=== PATIENT | female | born 1960 | race Caucasian/White ===

== ENCOUNTER → 2019-06-12 15:39 | Outpatient (CLI) | payer OTHER, SELFPAY ==
--- NOTE | ~2019-06-12 | MM_ITS ---
EXAMINATION: MM screening [facility] BI w clarisse HISTORY: Screening mammogram TECHNIQUE: Craniocaudal and mediolateral oblique 3-D tomosynthesis images were obtained and synthetic 2-D images were generated. CAD analysis was submitted and interpreted. COMPARISON: Comparison to multiple prior studies sequentially, with oldest reviewed study dated 01/25. BREAST PARENCHYMAL COMPOSITION: There are scattered areas of fibroglandular density. FINDINGS: Stable benign-appearing left breast calcifications. There is no evidence of suspicious mass , calcification, or architectural distortion to suggest malignancy in either breast. There has been n o suspicious interval change. IMPRESSION: 1. No mammographic evidence of malignancy. 2. Recommend routine screening mammography in one year. BI-RADS Category 2: Benign finding(s). Reviewed, dictated and finalized at location D.
== END ==
PROVIDERS: Visit Provider Internal Medicine
DX: Z12.31 Encounter for screening mammogram for malignant neoplasm of breast (principal)
CPT/HCPCS: 77063; 77067

== ENCOUNTER → 2020-06-17 16:38 | Outpatient (CLI) | payer OTHER, SELFPAY ==
--- NOTE | ~2020-06-17 | MM_ITS ---
EXAMINATION: MM screening bal[facility] BI w clarisse HISTORY: Screening mammogram, family history of breast cancer in her mother. TECHNIQUE: Craniocaudal and mediolateral oblique 3-D tomosynthesis images were obtained and synthetic 2-D images were generated. CAD analysis was submitted and interpreted. COMPARISON: 06/12/2019, 05/03/2018, 03/22/2017 BREAST PARENCHYMAL COMPOSITION: There are scattered areas of fibroglandular density. FINDINGS: There is no evidence of suspicious mass, calcification, or architectural distortion to sugg est malignancy in either breast. There has been no suspicious interval change. IMPRESSION: 1. No mammographic evidence of malignancy. 2. Recommend routine screening mammography in one year. BI-RADS Category 1: Negative Reviewed, dictated and finalized at location A.
== END ==
PROVIDERS: PCP Internal Medicine; Visit Provider Internal Medicine
DX: Z12.31 Encounter for screening mammogram for malignant neoplasm of breast (principal)
CPT/HCPCS: 77063; 77067

== ENCOUNTER 2020-08-19 12:20 | Outpatient (CLI) | payer OTHER, SELFPAY ==
--- NOTE | ~2020-08-19 | CT_ITS ---
EXAMINATION: CTA abdomen DATE: 08/19/2020 15:28 CDT INDICATION: Hypertension TECHNIQUE: Computed tomographic angiography (CTA) of the abdomen was performed without and with 100 m L Omnipaque-350 intravenous contrast. The dose-length product was 712.70 mGy-cm. Maximum intensity pr ojection 3D-reconstructions of the aorta and other arteries were constructed by the technologist on a separate workstation. Automated exposure control and iterative reconstruction technique were teshae bhanu. COMPARISON: CT dated 03/11/2011. FINDINGS: Lung bases are unremarkable. Heart size is normal. No significant pleural or pericardial ef fusion. There are calcified granulomas of the spleen. Fatty infiltration of the liver. Hepatomegaly. Gallbladder is present. The kidneys are unremarkable. No lymphadenopathy. There is a fat-containing l ower abdominal ventral wall hernias. Nonobstructive bowel gas pattern. The celiac axis, SMA and renal arteries are widely patent. The MARGARETTE is patent. No evidence for aortic aneurysm or dissection. Mild l ower thoracic and lumbar spondylosis. No acute osseous abnormality. IMPRESSION: 1. No significant vascular abnormality. 2: Hepatomegaly with fatty infiltration. 3: Small lower abdominal ventral hernia containing fat. Reviewed, dictated and finalized at location A.
[2020-08-19 13:03] LABS: Estimated Glomerular Filt Rate 31
== END 2020-08-19 12:21 | disposition home or self-care (01) ==
PROVIDERS: PCP Internal Medicine; Visit Provider Internal Medicine Nephrology
DX: R16.0 Hepatomegaly, not elsewhere classified (principal); I10 Essential (primary) hypertension; K43.9 Ventral hernia without obstruction or gangrene
CPT/HCPCS: 74175; Q9967

== ENCOUNTER → 2021-03-11 03:15 | Outpatient (CLI) | payer OTHER, SELFPAY ==
[2021-03-16 22:54] LABS: SARS-CoV-2 RNA PCR Negative
== END ==
PROVIDERS: PCP Internal Medicine; Visit Provider Nurse Practitioner
DX: Z20.828 Contact with and (suspected) exposure to other viral communicable diseases (principal)
CPT/HCPCS: C9803; U0003; U0005

== ENCOUNTER 2021-06-15 11:00 | Outpatient (RCR) | payer BC, SELFPAY ==
[2021-06-15 09:47] VITALS: BMI 44.4
[2021-06-15 09:59] VITALS: BMI 44.4
== END 2021-07-13 14:50 | disposition home or self-care (01) ==
LOC: ANHDMC 11:00
PROVIDERS: PCP Internal Medicine; Visit Provider Nurse Practitioner
DX: E11.9 Type 2 diabetes mellitus without complications (principal); Z71.3 Dietary counseling and surveillance; Z71.89 Other specified counseling
CPT/HCPCS: 97802; G0108

== ENCOUNTER 2021-07-21 14:08 | Outpatient (CLI) | payer BC, SELFPAY ==
--- NOTE | ~2021-07-21 | XR_ITS ---
XR hand RT 2V DATE: 07/21/2021 14:33 INDICATION: Pain at the base of the thumb for months TECHNIQUE: AP and lateral views COMPARISON: July 14, 2008 right wrist FINDINGS: There is mild osteoarthritis at the first carpometacarpal joint. There is mild osteoarthritis at some interphalangeal joints, primarily distal interphalangeal joint o f second digit. No fracture, dislocation, periosteal reaction or bone destruction or erosive change or chondrocalcino sis. IMPRESSION: Mild osteoarthritis primarily at first carpometacarpal and second distal interphalangeal joints Reviewed, dictated and finalized at location A. IMPRESSION: Mild osteoarthritis primarily at first carpometacarpal and second d istal interphalangeal joints
== END 2021-07-21 14:09 | disposition home or self-care (01) ==
LOC: ANHIMG 14:11
PROVIDERS: PCP Internal Medicine; Visit Provider Nurse Practitioner
DX: M19.041 Primary osteoarthritis, right hand (principal)
CPT/HCPCS: 73120

== ENCOUNTER 2021-08-12 10:19 | Emergency (ER) | payer BC, SELFPAY ==
[2021-08-12 10:26] VITALS: BP 119/81; PULSE 85; RESP 16; TEMP 36.7; O2SAT 99
--- NOTE | 2021-08-12 10:44 | ED.URI ---
HPI - URI/Sore Throat General Chief Complaint: Upper Respiratory Infection Stated Complaint: headache and sore throat Time Seen by Provider: 08/12/21 10:44 Source: patient Mode of arrival: ambulatory Limitations: no limitations History of Present Illness HPI Narrative: Peace Ruiz is a 60 yo female with a PMH ogf HTN, high cholesterol, seasonal allergies, comes to [facility] with complaints of sore throat and headache since Monday Related Data Home Medications Medication Instructions Recorded Confirmed aspirin 81 mg tablet,delayed 81 mg PO DAILY 02/25/19 08/12/21 release cetirizine 10 mg capsule 10 mg PO DAILY 02/25/19 08/12/21 chlorthalidone 25 mg tablet 25 mg PO DAILY 02/25/19 08/12/21 multivitamin 1 tablet PO DAILY 02/25/19 08/12/21 Allergies Allergy/AdvReac Type Severity Reaction Status Date / Time cephalexin Allergy Severe Hives Verified 08/12/21 10:25 Cephalosporins Allergy Unknown HIVES Verified 08/12/21 10:25 Review of Systems Review of Systems: CONSTITUTIONAL: Denies fever, chills, sweats. Has headache EYES: Denies visual changes, redness, discharge. ENT: Denies rhinorrhea, congestion, has sore throat, otalgia. CARDIOVASCULAR: Denies chest pain, palpitations, edema. RESPIRATORY: Denies dyspnea, wheezing, cough GASTROINTESTINAL: Denies abdominal pain, nausea, vomiting, diarrhea. GENITOURINARY: Denies dysuria, hematuria, abnormal discharge SKIN: Denies rash or itching. NEUROLOGIC: Denies numbness, or focal weakness. PSYCHIATRIC: Denies anxiety or depression. [facility] Past Medical History Medical History Carpal tunnel syndrome CKD (chronic kidney disease) CVA (cerebral vascular accident) History of measles, mumps, or rubella Hypertension Insomnia Obesity TIA (transient ischemic attack) Type 2 diabetes mellitus Surgical History Surgical History H/O: hysterectomy Family History Family History Mother Diabetes mellitus Hypertension Breast cancer Father Family history of coronary artery disease Social History Social History Smoking status: Never smoker Alcohol intake: never Substance use: never Spiritual care concerns: No Comments At time of signature, I agree with nursing past medical, surgical, social and family history. There is no relevant family history pertinent to the presenting complaint. Exam Narrative: GENERAL: This is a overly-nourished, well-developed patient, in moderate distress. HEAD: normocephalic, atraumatic. EYES: PERRL. Sclera clear/white. Vision is grossly intact. EARS: External ears normal, Hearing grossly intact. NOSE: External nose normal without nasal discharge, nares without redness, no rhinorrhea. THROAT: Mucous membranes moist, posterior pharynx erythema, looks raw NECK: Neck supple, non-tender CARDIOVASCULAR: Regular rate and rhythm without murmurs, gallops, or rubs. RESPIRATORY: Clear to auscultation. Breath sounds equal bilaterally. No wheezes, rales, or rhonchi. GASTROINTESTINAL: Abdomen soft, SKIN: warm, intact with no suspicious lesions or rash, good texture and turgor. NEURO: awake, alert, and oriented to person, place and time. There were no obvious focal neurologic abnormalities. Steady gait EXTREMITIES: Normal range of motion. BACK: Nontender without deformity Course Course Emergency Course: Patient comes to [facility] with complaints of sore throat and headache since Monday Strep test is negative COVID test-positive Prednisone 40 mg x 5 days, cepacol lozenges, use Tylenol as needed for pain Level of Care: Express Care Visit Vital Signs Vital signs: Vital Signs Temperature 98.0 F 08/12/21 10:26 Pulse Rate 85 08/12/21 10:26 Respiratory Rate 16 08/12/21 10:26 Blood Pressure 119/81 08/12/21 10:26 P
== END 2021-08-12 11:08 | disposition home or self-care (01) ==
PROVIDERS: Emergency Provider Nurse Practitioner; PCP Internal Medicine
DX: U07.1 COVID-19 (principal); E78.00 Pure hypercholesterolemia, unspecified; I12.9 Hypertensive chronic kidney disease with stage 1 through stage 4 chronic kidney disease, or unspecified chronic kidney disease; E11.22 Type 2 diabetes mellitus with diabetic chronic kidney disease; N18.9 Chronic kidney disease, unspecified; Z79.84 Long term (current) use of oral hypoglycemic drugs; Z86.73 Personal history of transient ischemic attack (TIA), and cerebral infarction without residual deficits; E66.9 Obesity, unspecified
CPT/HCPCS: 87081; 87426; 87880; 99213; C9803; G0463

== ENCOUNTER → 2021-08-25 12:43 | Outpatient (CLI) | payer BC, SELFPAY ==
--- NOTE | ~2021-08-25 | MM_ITS ---
EXAMINATION: MM screening bal[facility] BI w clarisse HISTORY: Screening mammogram TECHNIQUE: Craniocaudal and mediolateral oblique 3-D tomosynthesis images were obtained and synthetic 2-D images were generated. CAD analysis was submitted and interpreted. COMPARISON: 06/13/2020, 06/12/2019, 05/03/2018 bilateral screening mammogram examinations BREAST PARENCHYMAL COMPOSITION: There are scattered areas of fibroglandular density. FINDINGS: Biopsy marker on the left; history of prior benign left breast biopsy. There is no evidence of suspicious mass, calcification, or architectural distortion to suggest malignancy in either breas t. There has been no suspicious interval change. IMPRESSION: 1. No mammographic evidence of malignancy. 2. Recommend routine screening mammography in one year. BI-RADS Category 1: Negative Reviewed, dictated and finalized at location A.
== END ==
PROVIDERS: PCP Internal Medicine; Visit Provider Internal Medicine
DX: Z12.31 Encounter for screening mammogram for malignant neoplasm of breast (principal)
CPT/HCPCS: 77063; 77067

== ENCOUNTER 2021-09-23 00:42 | Day surgery (SDC) | payer BC, SELFPAY ==
--- NOTE | 2021-09-21 12:38 | PM.HPGS ---
History of Present Illness History of Present Illness Consent: Risks, benefits, and alternatives have been discussed and questions answered. Patient agrees to proceed with procedure. Chief complaint: neoplasm screening; history of colon polyps Narrative: Peace Ruiz is a 60 year old female referred for colon cancer screening. Seven years ago she had an adenomatous polyp removed which was broad-based and removed piecemeal. Review of Systems Review of Systems: All systems reviewed & are unremarkable except as noted in HPI and below PMFSH Past Medical History Medical History Carpal tunnel syndrome CKD (chronic kidney disease) CVA (cerebral vascular accident) History of measles, mumps, or rubella Hypertension Insomnia Obesity TIA (transient ischemic attack) Type 2 diabetes mellitus Surgical History Surgical History H/O: hysterectomy Family History Family History Mother Diabetes mellitus Hypertension Breast cancer Father Family history of coronary artery disease Social History Social History Smoking status: Never smoker Alcohol intake: never Substance use: never Living arrangements: alone Spiritual care concerns: No Meds Home Medications and Allergies Home Medications Medication Instructions Recorded Confirmed Type aspirin 81 mg tablet,delayed 81 mg PO DAILY 02/25/19 08/12/21 History release (Adult Low Dose Aspirin) cetirizine 10 mg capsule (Zyrtec) 10 mg PO DAILY 02/25/19 08/12/21 History multivitamin 1 tablet PO DAILY 02/25/19 08/12/21 History amlodipine 10 mg tablet 10 mg PO DAILY #90 tabs 05/24/21 08/12/21 Rx atorvastatin 20 mg tablet 20 mg PO DAILY #90 tabs 05/24/21 08/12/21 Rx clonidine HCl 0.1 mg tablet 0.1 mg PO BID #180 tabs 05/24/21 08/12/21 Rx dapagliflozin 5 mg tablet (Farxiga) 5 mg PO DAILY #90 tabs 05/24/21 08/12/21 Rx dulaglutide 0.75 mg/0.5 mL 0.75 mg (0.5 mL) subcut WEEKLY #2 05/24/21 08/12/21 Rx subcutaneous pen injector mL (Trulicity) metformin 1,000 mg tablet 1,000 mg PO BID #180 tabs 05/24/21 08/12/21 Rx quinapril 40 mg tablet 40 mg PO DAILY #90 tabs 05/24/21 08/12/21 Rx Allergies Allergy/AdvReac Type Severity Reaction Status Date / Time cephalexin Allergy Severe Hives Verified 09/23/21 08:10 Cephalosporins Allergy Unknown HIVES Verified 09/23/21 08:10 Exam Resp: Auscultation: clear to auscultation bilaterally Cardio: Rate: regular rate Rhythm: regular rhythm GI: GI Palp: Yes Soft to palpation and No Tenderness to palpation present (GI) Assessment and Plan Assessment and plan (1) Colon cancer screening: Code(s): Z12.11 - Encounter for screening for malignant neoplasm of colon Status: Acute Assessment and Plan: Colonoscopy with possible biopsy or polypectomy or cautery or injection of substances.
--- NOTE | 2021-09-22 19:11 | WPDANESEPPF ---
Anes - Initial Pre Proc Eval Procedure: Operation Date: 09/23/21 09:00 Proposed Procedures p Screening Colonoscopy - Mumtaz Tariq MD Date/Time: 09/22/21 19:11 Surgeon: Mumtaz Tariq MD Pre Op Diagnosis: neoplasm screening; history of colon polyps Patient Data Age: 60 Gender: F Height: Weight: Allergies Allergy/AdvReac Type Severity Reaction Status Date / Time cephalexin Allergy Severe Hives Verified 09/23/21 08:10 Cephalosporins Allergy Unknown HIVES Verified 09/23/21 08:10 Home Medications Medication Instructions Recorded Confirmed Type aspirin 81 mg tablet,delayed 81 mg PO DAILY 02/25/19 08/12/21 History release (Adult Low Dose Aspirin) cetirizine 10 mg capsule (Zyrtec) 10 mg PO DAILY 02/25/19 08/12/21 History multivitamin 1 tablet PO DAILY 02/25/19 08/12/21 History amlodipine 10 mg tablet 10 mg PO DAILY #90 tabs 05/24/21 08/12/21 Rx atorvastatin 20 mg tablet 20 mg PO DAILY #90 tabs 05/24/21 08/12/21 Rx clonidine HCl 0.1 mg tablet 0.1 mg PO BID #180 tabs 05/24/21 08/12/21 Rx dapagliflozin 5 mg tablet (Farxiga) 5 mg PO DAILY #90 tabs 05/24/21 08/12/21 Rx dulaglutide 0.75 mg/0.5 mL 0.75 mg (0.5 mL) subcut WEEKLY #2 05/24/21 08/12/21 Rx subcutaneous pen injector mL (Trulicity) metformin 1,000 mg tablet 1,000 mg PO BID #180 tabs 05/24/21 08/12/21 Rx quinapril 40 mg tablet 40 mg PO DAILY #90 tabs 05/24/21 08/12/21 Rx Patient hx anesthesia problems: none Family hx anesthesia problems: none Results Review: All pre-operative results and documents have been reviewed as part of the pre-operative evaluation. [facility] Past Medical History Medical History Carpal tunnel syndrome CKD (chronic kidney disease) CVA (cerebral vascular accident) History of measles, mumps, or rubella Hypertension Insomnia Obesity TIA (transient ischemic attack) Type 2 diabetes mellitus Surgical History Surgical History H/O: hysterectomy Family History Family History Mother Diabetes mellitus Hypertension Breast cancer Father Family history of coronary artery disease Social History Social History Smoking status: Never smoker Alcohol intake: never Substance use: never Living arrangements: alone Spiritual care concerns: No Anes - Eval Final PreProcedure Day of Procedure 09/22/21 19:11 Patient weight: obese Heart: regular rate and rhythm Lungs: clear to auscultation Airway: Mallampati scale class II Neurological: alert and oriented Last oral intake: >/= 8 hours ASA classification: III Emergent: no Anesthetic plan: proceed Anesthesia type and monitoring: general GIVS and standard monitoring Results Review: All pre-operative results and documents have been reviewed as part of the pre-operative evaluation. Informed Consent: The patient's anesthetic plan and its attendant risks and benefits were discussed with the patient/family/POA. Questions were solicited and answers provided to the satisfaction of the patient/family/POA.
[2021-09-23 08:12] VITALS: BP 151/97; PULSE 68; RESP 20; TEMP 36.2; O2SAT 97; BMI 40.4
[2021-09-23] MEDS: LACTATED RINGERS 1,000 ML 150 ML IV CONT (08:15)
[2021-09-23 08:28] LABS: Glucose Point of Care 196 mg/dl (65-105)
[2021-09-23 09:08] VITALS: BP 112/68; PULSE 58; RESP 20; O2SAT 96
[2021-09-23 09:18] VITALS: BP 118/74; PULSE 57; RESP 15; O2SAT 96
[2021-09-23 09:28] VITALS: BP 107/76; PULSE 62; RESP 17; O2SAT 98
== END 2021-09-23 09:37 | disposition home or self-care (01) ==
PROVIDERS: PCP Internal Medicine; Visit Provider Internal Medicine Gastroenterology
PROC: 0DJD8ZZ Inspection of Lower Intestinal Tract, Via Natural or Artificial Opening Endoscopic (ICD-10-PCS; CPT 45378; principal; 2021-09-23 09:00)
DX: Z12.11 Encounter for screening for malignant neoplasm of colon (principal); Z86.010 Personal history of colon polyps; K64.8 Other hemorrhoids; Z79.82 Long term (current) use of aspirin; Z79.84 Long term (current) use of oral hypoglycemic drugs; Z86.73 Personal history of transient ischemic attack (TIA), and cerebral infarction without residual deficits; I12.9 Hypertensive chronic kidney disease with stage 1 through stage 4 chronic kidney disease, or unspecified chronic kidney disease; N18.9 Chronic kidney disease, unspecified; E66.01 Morbid (severe) obesity due to excess calories; Z68.41 Body mass index [BMI] 40.0-44.9, adult
CPT/HCPCS: 45378; 82948; J2704; J7120

== ENCOUNTER → 2022-12-06 11:17 | Outpatient (CLI) | payer BC, SELFPAY ==
--- NOTE | ~2022-12-06 | MM_ITS ---
EXAMINATION: MM screening balbina BI w clarisse HISTORY: Screening mammogram TECHNIQUE: Craniocaudal and mediolateral oblique 3-D tomosynthesis images were obtained and synthetic 2-D images were generated. CAD analysis was submitted and interpreted. COMPARISON: 08/25/2021, 06/13/2020, 06/12/2019 bilateral screening mammogram examinations BREAST PARENCHYMAL COMPOSITION: There are scattered areas of fibroglandular density. FINDINGS: There is no evidence of suspicious mass, calcification, or architectural distortion to sugg est malignancy in either breast. There has been no suspicious interval change. IMPRESSION: 1. No mammographic evidence of malignancy. 2. Recommend routine screening mammography in one year. BI-RADS Category 1: Negative Reviewed, dictated and finalized at location A.
== END ==
PROVIDERS: PCP Internal Medicine; Visit Provider Internal Medicine
DX: Z12.31 Encounter for screening mammogram for malignant neoplasm of breast (principal)
CPT/HCPCS: 77063; 77067

== ENCOUNTER 2023-01-03 14:26 | Outpatient (CLI) | payer BC, SELFPAY ==
--- NOTE | 2023-01-03 14:45 | ECHO_ITS ---
Patient Info Name: Peace Ruiz Age: 62 years : 1960 Gender: Female Ht: 66 in Wt: 265 lbs BSA: 2.43 m2 HR: 65 bpm BP: 134 / 80 mmHg Technical Quality: Fair Exam Date: 01/03/2023 2:53 PM Exam Location: [facility] Patient Status: Outpatient Admit Date: 01/03/2023 Staff Ordering Physician: Ashanti Flynn NP Musician Instrumental: Leila Pickard RDCS Attending Provider: Ashanti Flynn NP Referring Physician: Rina CRANDALL; Exam Type: CA echo doppler color flow Study Info Indications R01.1 - Cardiac murmur, unspecified Complete two-dimensional, color flow and Doppler transthoracic echocardiogram is performed. Summary 1. Complete two-dimensional, color flow and Doppler transthoracic echocardiogram is performed. 2. Left ventricular chamber dimension is normal. 3. Left ventricular systolic function is normal, estimated at 60-65%. 4. The left ventricular diastolic function is grade I diastolic dysfunction. 5. E/e' 11 is mildly elevated. 6. Left atrial chamber dimension is mildly enlarged. 7. The aortic valve is not well visualized. Possible bicuspid valve. 8. There is mild aortic valve sclerosis. 9. No pulmonary hypertension, estimated pulmonary arterial systolic pressure is 24 mmHg. Left Ventricle E/e' 11 is mildly elevated. Left ventricular chamber dimension is normal. Left ventricular systolic function is normal, estimated at 60-65%. The left ventricular diastolic function is grade I diastolic dysfunction. Right Ventricle Right ventricular chamber dimension is normal. Right ventricular systolic function is normal. Left Atria Left atrial chamber dimension is mildly enlarged. Right Atria Right atrial chamber dimension is normal. Aortic Valve The aortic valve is not well visualized. Possible bicuspid valve. There is mild aortic valve sclerosis. There is no aortic valve stenosis. There is no aortic valve regurgitation. Pulmonic Valve There is no pulmonic regurgitation. Mitral Valve There is no mitral valve stenosis. There is no mitral valve regurgitation. Tricuspid Valve There is no tricuspid valve regurgitation. No pulmonary hypertension, estimated pulmonary arterial systolic pressure is 24 mmHg. Pericardium/Pleural There is no pericardial effusion. Inferior Vena Cava Normal inferior vena cava with >50% collapse upon inspiration consistent with normal right atrial pressure, 5 mmHg. Aorta The aortic root size at the sinus of Valsalva is normal. Left Ventricular Outflow Tract Name Value Normal LVOT 2D LVOT Diameter 1.9 cm LVOT Doppler LVOT Peak Gradient 13 mmHg LVOT Mean Gradient 7 mmHg LVOT VTI 36 cm LVOT VTI/AV VTI Ratio 0.9 LVOT Stroke Volume 99 ml LVOT CO 5.6 l/min LVOT CI 2.3 l/min/m2 Pulmonic Valve Name Value Normal RVOT Doppler
== END 2023-01-03 14:27 | disposition home or self-care (01) ==
PROVIDERS: PCP Internal Medicine; Visit Provider Nurse Practitioner
DX: R01.1 Cardiac murmur, unspecified (principal); I51.7 Cardiomegaly; I35.8 Other nonrheumatic aortic valve disorders; R93.1 Abnormal findings on diagnostic imaging of heart and coronary circulation
CPT/HCPCS: 93306

== ENCOUNTER 2023-01-16 16:20 | Outpatient (CLI) | payer BC, SELFPAY ==
--- NOTE | ~2023-01-16 | CT_ITS ---
CT scan of the Neck Technique: 2.5 mm axial scans were obtained through the neck without IV contrast administration. Roma nal and sagittal reconstructions of the neck were obtained. Dose reduction technique was used on this scan by utilizing automated exposure control and iterative reconstruction technique. The dose-length product (DLP) was 528.45 mGy-cm. Clinical History: Other diseases salivary gland, right parotid gland mass Findings: There is no evidence of any significant cervical lymphadenopathy. Several small, nonenlarged jugulo- digastric and posterior cervical lymph nodes are noted bilaterally. Parapharyngeal spaces appear norm al bilaterally. Submandibular glands are unremarkable. There is a 1.3 cm mildly lobular mass in the r ight parotid gland (axial image 35). There are several smaller, though otherwise similar appearing ma sses in the left parotid gland. The pharyngeal mucosal spaces appear normal. No other soft tissue masses are seen in the neck. The thyroid gland appears normal. Images of the lung apices reveal no abnormalities. Impression: Small bilateral parotid masses, as noted above. Findings code represent bilateral intraparotid lymph nodes. Other mass lesions cannot be excluded. MR could be considered to further evaluate, but there i s typically significant overlap of imaging characteristics of various parotid masses. Reviewed, dictated and finalized at location M. Impression: Small bilateral parotid masses, as noted above. Findings code represent bilater al intraparotid lymph nodes. Other mass lesions cannot be excluded. MR could be considered to further evaluate, but there is typically significant overlap of imaging characteristics of various parotid masses.
== END 2023-01-16 16:21 | disposition home or self-care (01) ==
PROVIDERS: PCP Internal Medicine; Visit Provider Otolaryngology
DX: K11.8 Other diseases of salivary glands (principal)
CPT/HCPCS: 70490

== ENCOUNTER 2023-08-04 13:50 | Outpatient (CLI) | payer BC, SELFPAY ==
--- NOTE | ~2023-08-04 | CT_ITS ---
EXAMINATION: CT sinus wo con DATE: 08/04/2023 14:14 INDICATION: Recurrent ear infections on the right side for 2 to 3 months. Chronic sinusitis. TECHNIQUE: Computed tomography (CT) of the paranasal sinuses was performed without contrast. Iterativ e reconstruction technique was employed. Exam dose: 305.77 mGy-cm total exam DLP. COMPARISON: None FINDINGS: There is leftward bowing of the nasal septum. There is prominent soft tissue swelling of the nasal turbinates bilaterally, left greater than right. Jordyn bullosa of right middle nasal turbinate. The ostiomeatal units are patent. With the exception of minimal focal mucosal thickening at the floor of the right maxillary antrum, th e paranasal sinuses are normally developed and aerated. The ostiomeatal units are patent bilaterally. Occasional limited primarily inferior mastoid air cell opacification on the right. The mastoid air ce lls otherwise are normally developed and aerated bilaterally. Middle and inner ear auditory apparatus appears normal. IMPRESSION: Leftward bowing of nasal septum Mildly prominent soft tissue swelling labeled turbinates, left greater than right Jordyn bullosa of right middle nasal turbinate Minimal focal neoplastic opacification of the floor of the right maxillary ostium somewhat paranasal sinuses and ostiomeatal units are otherwise clear Minimal opacification of the lower right mastoid air cells Reviewed, dictated and finalized at Location A. Reviewed, dictated and finalized at location B. IMPRESSION: Leftward bowing of nasal septum Mildly prominent soft tissue swelling labeled turbinates, left greater than rig ht Jordyn bullosa of right middle nasal turbinate Minimal focal neoplastic opacification of the floor of the right maxillary osti um somewhat paranasal sinuses and ostiomeatal units are otherwise clear Minimal opacification of the lower right mastoid air cells
== END 2023-08-04 13:51 | disposition home or self-care (01) ==
PROVIDERS: PCP Internal Medicine; Visit Provider Otolaryngology
DX: J32.9 Chronic sinusitis, unspecified (principal); J34.3 Hypertrophy of nasal turbinates; J34.89 Other specified disorders of nose and nasal sinuses
CPT/HCPCS: 70486

== ENCOUNTER 2023-08-09 01:18 | Day surgery (SDC) | payer BC, SELFPAY ==
[2023-07-28 12:42] VITALS: BMI 44.4
[2023-08-09 07:49] VITALS: BP 149/78; PULSE 82; RESP 20; TEMP 36.2; O2SAT 99
[2023-08-09] MEDS: LACTATED RINGERS 1,000 ML 150 ML IV CONT (07:59)
[2023-08-09 08:03] LABS: Glucose Point of Care 227 mg/dl (65-105)
--- NOTE | 2023-08-09 08:13 | WPDANESEPPF ---
Anes - Initial Pre Proc Eval Procedure: Operation Date: 08/09/23 09:00 Proposed Procedures p Esophagogastroduodenoscopy - Valerio Jade MD Date/Time: 08/09/23 08:13 Surgeon: Valerio Jade MD Pre Op Diagnosis: dysphagia Patient Data Age: 62 Gender: F Height: 1.68 m Weight: 126.4 kg Last Vital Signs Temp 97.1 F L 08/09/23 07:49 Pulse 82 08/09/23 07:49 Resp 20 08/09/23 07:49 BP 149/78 H 08/09/23 07:49 Pulse Ox 99 08/09/23 07:49 O2 Del Method Room Air 08/09/23 07:49 Allergies Allergy/AdvReac Type Severity Reaction Status Date / Time cephalexin Allergy Severe Hives Verified 08/09/23 07:48 Cephalosporins Allergy Unknown HIVES Verified 08/09/23 07:48 Home Medications Medication Instructions Recorded Confirmed Type multivitamin 1 tablet PO DAILY 02/25/19 07/28/23 History amlodipine 10 mg tablet 10 mg PO DAILY #90 tabs 11/30/22 07/28/23 Rx atorvastatin 20 mg tablet 20 mg PO DAILY #90 tabs 11/30/22 07/28/23 Rx quinapril 40 mg tablet 40 mg PO DAILY 01/12/23 07/28/23 History aspirin 81 mg tablet,delayed 81 mg PO DAILY #90 tabs 02/20/23 07/28/23 Rx release (Adult Low Dose Aspirin) clonidine HCl 0.1 mg tablet See Rx Instructions .Route 05/16/23 07/28/23 Rx .COMPLEX #90 tabs glipizide 5 mg tablet 5 mg PO BID #180 tabs 05/31/23 07/28/23 Rx fluticasone propionate 50 1 spray intranasal Q12H #48 mL 06/19/23 07/28/23 Rx mcg/actuation nasal spray,suspension (Flonase Allergy Relief) lisinopril 40 mg tablet 40 mg PO DAILY 07/28/23 07/28/23 History Laboratory Tests 08/09/23 07:54 POC Capillary Glucose 227 H mg/dl (65-105) Patient hx anesthesia problems: none Family hx anesthesia problems: none Results Review: All pre-operative results and documents have been reviewed as part of the pre-operative evaluation. [facility] Past Medical History Medical History Carpal tunnel syndrome CKD (chronic kidney disease) Heart murmur, systolic History of measles, mumps, or rubella Hypertension Insomnia Mass of right parotid gland TIA (transient ischemic attack) Type 2 diabetes mellitus Surgical History Surgical History H/O: hysterectomy Family History Family History Mother Diabetes mellitus Hypertension Breast cancer Father Family history of coronary artery disease Social History Social History Social History: Caffeine-soda Smoking status: Never smoker Alcohol intake: never Substance use: never Substance use type: does not use Lack of Transportation: No Lack of Food: Never True Current Housing: I Have Housing Concerned About Future Housing: No Difficulty Paying Gas/Electric Bills: No Difficulty Paying for Meds: No Currently Unemployed: No Education: High School Diploma/GED Difficulty w/ Childcare or Family Care: No Living arrangements: alone Spiritual care concerns: No Anes - Eval Final PreProcedure Day of Procedure 08/09/23 08:13 Patient weight: morbidly obese Heart: regular rate and rhythm Lungs: clear to auscultation Airway: Mallampati scale class III Neurological: alert and oriented Last oral intake: >/= 8 hours ASA classification: III Emergent: no Anesthetic plan: proceed Anesthesia type and monitoring: general GIVS and standard monitoring Results Review: All pre-operative results and documents have been reviewed as part of the pre-operative evaluation. Informed Consent: The patient's anesthetic plan and its attendant risks and benefits were discussed with the patient/family/POA. Questions were solicited and answers provided to the satisfaction of the patient/family/POA.
--- NOTE | 2023-08-09 09:00 | PM.HPGS ---
History of Present Illness History of Present Illness Consent: Risks, benefits, and alternatives have been discussed and questions answered. Patient agrees to proceed with procedure. Chief complaint: dysphagia Narrative: Peace Ruiz is a 62 year old female with dysphagia to solids, never had egd. Review of Systems Review of Systems: All systems reviewed & are unremarkable except as noted in HPI and below PMFSH Past Medical History Medical History Carpal tunnel syndrome CKD (chronic kidney disease) Heart murmur, systolic History of measles, mumps, or rubella Hypertension Insomnia Mass of right parotid gland TIA (transient ischemic attack) Type 2 diabetes mellitus Surgical History Surgical History H/O: hysterectomy Family History Family History Mother Diabetes mellitus Hypertension Breast cancer Father Family history of coronary artery disease Social History Social History Social History: Caffeine-soda Smoking status: Never smoker Alcohol intake: never Substance use: never Substance use type: does not use Lack of Transportation: No Lack of Food: Never True Current Housing: I Have Housing Concerned About Future Housing: No Difficulty Paying Gas/Electric Bills: No Difficulty Paying for Meds: No Currently Unemployed: No Education: High School Diploma/GED Difficulty w/ Childcare or Family Care: No Living arrangements: alone Spiritual care concerns: No Meds Home Medications and Allergies Home Medications Medication Instructions Recorded Confirmed Type multivitamin 1 tablet PO DAILY 02/25/19 07/28/23 History amlodipine 10 mg tablet 10 mg PO DAILY #90 tabs 11/30/22 07/28/23 Rx atorvastatin 20 mg tablet 20 mg PO DAILY #90 tabs 11/30/22 07/28/23 Rx quinapril 40 mg tablet 40 mg PO DAILY 01/12/23 07/28/23 History aspirin 81 mg tablet,delayed 81 mg PO DAILY #90 tabs 02/20/23 07/28/23 Rx release (Adult Low Dose Aspirin) clonidine HCl 0.1 mg tablet See Rx Instructions .Route 05/16/23 07/28/23 Rx .COMPLEX #90 tabs glipizide 5 mg tablet 5 mg PO BID #180 tabs 05/31/23 07/28/23 Rx fluticasone propionate 50 1 spray intranasal Q12H #48 mL 06/19/23 07/28/23 Rx mcg/actuation nasal spray,suspension (Flonase Allergy Relief) lisinopril 40 mg tablet 40 mg PO DAILY 07/28/23 07/28/23 History Allergies Allergy/AdvReac Type Severity Reaction Status Date / Time cephalexin Allergy Severe Hives Verified 08/09/23 07:48 Cephalosporins Allergy Unknown HIVES Verified 08/09/23 07:48 Vital Signs Vital Signs - 24 hr 08/09/23 07:49 Temperature 97.1 F L Pulse Rate 82 Respiratory Rate 20 Blood Pressure 149/78 H Pulse Oximetry 99 Oxygen Delivery Room Air Exam Const: General: comfortable and no acute distress HENMT: Face/Nose/Sinus: Normal nares present Eyes: General: appearance normal, both eyes and all related structures Neck: Neck: no JVD Resp: Auscultation: clear to auscultation bilaterally Cardio: Rate: regular rate Rhythm: regular rhythm GI: Inspection: non-distended GI Palp: Yes Soft to palpation Skin: General skin exam: normal color Neuro: General: gait normal Speech: normal speech Extrem: General: normal to inspection Psych: Mental Status: mental status grossly normal Assessment and Plan Assessment and plan (1) Dysphagia: Qualifiers: Dysphagia type: unspecified Qualified Code(s): R13.10 - Dysphagia, unspecified Code(s): R13.10 - Dysphagia, unspecified Status: Acute Assessment and Plan: egd to assess if needs dilatation
[2023-08-09] MEDS: BENZOCAINE (*SP) 60 ML SPRAY CAN (HURRICAINE) 1 SPRAY MUCOUS MEM (09:02)
[2023-08-09 09:15] VITALS: BP 97/55; PULSE 62; RESP 20; O2SAT 96
[2023-08-09 09:25] VITALS: BP 111/53; PULSE 69; RESP 20; O2SAT 100
[2023-08-09 09:31] VITALS: BP 115/52; PULSE 60; RESP 20; O2SAT 99
== END 2023-08-09 09:45 | disposition home or self-care (01) ==
PROVIDERS: PCP Internal Medicine; Visit Provider Internal Medicine Gastroenterology
PROC: 0DJ08ZZ Inspection of Upper Intestinal Tract, Via Natural or Artificial Opening Endoscopic (ICD-10-PCS; CPT 43235; principal; 2023-08-09 09:00)
DX: K22.2 Esophageal obstruction (principal); K22.10 Ulcer of esophagus without bleeding; K21.00 Gastro-esophageal reflux disease with esophagitis, without bleeding; K44.9 Diaphragmatic hernia without obstruction or gangrene; I12.9 Hypertensive chronic kidney disease with stage 1 through stage 4 chronic kidney disease, or unspecified chronic kidney disease; E11.22 Type 2 diabetes mellitus with diabetic chronic kidney disease; N18.9 Chronic kidney disease, unspecified; Z86.73 Personal history of transient ischemic attack (TIA), and cerebral infarction without residual deficits; E66.01 Morbid (severe) obesity due to excess calories; Z68.42 Body mass index [BMI] 45.0-49.9, adult; Z79.82 Long term (current) use of aspirin; Z79.84 Long term (current) use of oral hypoglycemic drugs
CPT/HCPCS: 43249; 43239; 82948; 88305; C1726; J2704; J7120

== ENCOUNTER 2023-12-28 03:10 | Day surgery (SDC) | payer BC, SELFPAY ==
[2023-12-11 09:45] VITALS: BMI 42.0
[2023-12-28 10:14] VITALS: BP 141/71; PULSE 55; RESP 18; TEMP 36.1; O2SAT 100
[2023-12-28 10:31] LABS: Glucose Point of Care 147 mg/dl (65-105)
[2023-12-28] MEDS: LACTATED RINGERS 1,000 ML 150 ML IV CONT (10:32)
--- NOTE | 2023-12-28 10:47 | WPDANESEPPF ---
Anes - Initial Pre Proc Eval Procedure: Operation Date: 12/28/23 11:30 Proposed Procedures p Esophagogastroduodenoscopy - Valerio Jade MD Date/Time: 12/28/23 10:47 Surgeon: Valerio Jade MD Pre Op Diagnosis: GERD, Esophageal obstruction, hernia Patient Data Age: 63 Gender: F Height: 1.68 m Weight: 123.7 kg Last Vital Signs Temp 97 F L 12/28/23 10:14 Pulse 55 L 12/28/23 10:14 Resp 18 12/28/23 10:14 BP 141/71 H 12/28/23 10:14 Pulse Ox 100 12/28/23 10:14 O2 Del Method Room Air 12/28/23 10:14 Allergies Allergy/AdvReac Type Severity Reaction Status Date / Time cephalexin Allergy Severe Hives Verified 12/28/23 10:13 Cephalosporins Allergy Unknown HIVES Verified 12/28/23 10:13 Home Medications Medication Instructions Recorded Confirmed Type multivitamin 1 tablet PO DAILY 02/25/19 12/28/23 History amlodipine 10 mg tablet 10 mg PO DAILY #90 tabs 11/30/22 12/28/23 Rx atorvastatin 20 mg tablet 20 mg PO DAILY #90 tabs 11/30/22 12/28/23 Rx lisinopril 40 mg tablet 40 mg PO DAILY 07/28/23 12/28/23 History omeprazole 40 mg capsule,delayed 40 mg PO .daily #30 caps 08/09/23 12/28/23 Rx release metformin 1,000 mg tablet 1,000 mg PO BID #60 tabs 09/07/23 12/28/23 Rx clonidine HCl 0.1 mg tablet See Rx Instructions .Route 11/13/23 12/28/23 Rx .COMPLEX #90 tabs glipizide 5 mg tablet 5 mg PO BID #180 tabs 11/29/23 12/28/23 Rx Laboratory Tests 12/28/23 10:26 POC Capillary Glucose 147 H mg/dl (65-105) Patient hx anesthesia problems: none Family hx anesthesia problems: none Results Review: All pre-operative results and documents have been reviewed as part of the pre-operative evaluation. [facility] Past Medical History Medical History Carpal tunnel syndrome CKD (chronic kidney disease) Heart murmur, systolic History of measles, mumps, or rubella Hypertension Insomnia Mass of right parotid gland TIA (transient ischemic attack) Type 2 diabetes mellitus Surgical History Surgical History H/O: hysterectomy Family History Family History Mother Diabetes mellitus Hypertension Breast cancer Father Family history of coronary artery disease Social History Social History Social History: Caffeine-soda Smoking status: Never smoker Alcohol intake: never Substance use: never Substance use type: does not use Do You Feel Safe in your Home?: Yes Lack of Transportation: No Lack of Food: Never True Current Housing: I Have Housing Concerned About Future Housing: No Difficulty Paying Gas/Electric Bills: No Difficulty Paying for Meds: No Currently Unemployed: No Education: High School Diploma/GED Difficulty w/ Childcare or Family Care: No Living arrangements: alone Gender identity (if verbalized by the patient): Female Spiritual care concerns: No Anes - Eval Final PreProcedure Day of Procedure 12/28/23 10:47 Patient weight: morbidly obese Heart: regular rate and rhythm Lungs: clear to auscultation Airway: Mallampati scale class II Neurological: alert and oriented Last oral intake: >/= 8 hours ASA classification: IV Emergent: no Anesthetic plan: proceed Anesthesia type and monitoring: general GIVS and standard monitoring Results Review: All pre-operative results and documents have been reviewed as part of the pre-operative evaluation. HTN, hyperlipidemia, DM fsbs 147, CKD GFR 39, now w dysphagia. Pt can walk 1-2 fos, no cp or sob. Informed Consent: The patient's anesthetic plan and its attendant risks and benefits were discussed with the patient/family/POA. Questions were solicited and answers provided to the satisfaction of the patient/family/POA.
--- NOTE | 2023-12-28 11:21 | PM.HPGS ---
History of Present Illness History of Present Illness Consent: Risks, benefits, and alternatives have been discussed and questions answered. Patient agrees to proceed with procedure. Chief complaint: GERD, Esophageal obstruction, hernia Narrative: Peace Ruiz is a 63 year old female with erosive esophagitis and dysphagia 07/2023- better after dilation and using ppi Review of Systems Review of Systems: All systems reviewed & are unremarkable except as noted in HPI and below PMFSH Past Medical History Medical History (Updated 12/28/23 @ 11:24 by Valerio Jade MD) Carpal tunnel syndrome CKD (chronic kidney disease) Erosive esophagitis Heart murmur, systolic History of measles, mumps, or rubella Hypertension Insomnia Mass of right parotid gland TIA (transient ischemic attack) Type 2 diabetes mellitus Surgical History Surgical History H/O: hysterectomy Family History Family History Mother Diabetes mellitus Hypertension Breast cancer Father Family history of coronary artery disease Social History Social History Social History: Caffeine-soda Smoking status: Never smoker Alcohol intake: never Substance use: never Substance use type: does not use Do You Feel Safe in your Home?: Yes Lack of Transportation: No Lack of Food: Never True Current Housing: I Have Housing Concerned About Future Housing: No Difficulty Paying Gas/Electric Bills: No Difficulty Paying for Meds: No Currently Unemployed: No Education: High School Diploma/GED Difficulty w/ Childcare or Family Care: No Living arrangements: alone Gender identity (if verbalized by the patient): Female Spiritual care concerns: No Meds Home Medications and Allergies Home Medications Medication Instructions Recorded Confirmed Type multivitamin 1 tablet PO DAILY 02/25/19 12/28/23 History amlodipine 10 mg tablet 10 mg PO DAILY #90 tabs 11/30/22 12/28/23 Rx atorvastatin 20 mg tablet 20 mg PO DAILY #90 tabs 11/30/22 12/28/23 Rx lisinopril 40 mg tablet 40 mg PO DAILY 07/28/23 12/28/23 History omeprazole 40 mg capsule,delayed 40 mg PO .daily #30 caps 08/09/23 12/28/23 Rx release metformin 1,000 mg tablet 1,000 mg PO BID #60 tabs 09/07/23 12/28/23 Rx clonidine HCl 0.1 mg tablet See Rx Instructions .Route 11/13/23 12/28/23 Rx .COMPLEX #90 tabs glipizide 5 mg tablet 5 mg PO BID #180 tabs 11/29/23 12/28/23 Rx Allergies Allergy/AdvReac Type Severity Reaction Status Date / Time cephalexin Allergy Severe Hives Verified 12/28/23 10:13 Cephalosporins Allergy Unknown HIVES Verified 12/28/23 10:13 Vital Signs Vital Signs - 24 hr 12/28/23 10:14 Temperature 97 F L Pulse Rate 55 L Respiratory Rate 18 Blood Pressure 141/71 H Pulse Oximetry 100 Oxygen Delivery Room Air Exam Const: General: comfortable and no acute distress HENMT: Face/Nose/Sinus: Normal nares present Eyes: General: appearance normal, both eyes and all related structures Neck: Neck: no JVD Resp: Auscultation: clear to auscultation bilaterally Cardio: Rate: regular rate Rhythm: regular rhythm GI: Inspection: non-distended GI Palp: Yes Soft to palpation Skin: General skin exam: normal color Neuro: General: gait normal Speech: normal speech Extrem: General: normal to inspection Psych: Mental Status: mental status grossly normal Assessment and Plan Assessment and plan (1) Erosive esophagitis: Code(s): K22.10 - Ulcer of esophagus without bleeding Status: Acute Assessment and Plan: better with ppi egd to assess healing
[2023-12-28 11:42] VITALS: BP 130/56; PULSE 70; RESP 12; O2SAT 99
[2023-12-28 11:52] VITALS: BP 129/64; PULSE 68; RESP 18; O2SAT 98
[2023-12-28 12:02] VITALS: BP 136/68; PULSE 67; RESP 18; O2SAT 98
== END 2023-12-28 12:21 | disposition home or self-care (01) ==
PROVIDERS: PCP Internal Medicine; Visit Provider Internal Medicine Gastroenterology
PROC: 0DJ08ZZ Inspection of Upper Intestinal Tract, Via Natural or Artificial Opening Endoscopic (ICD-10-PCS; CPT 43235; principal; 2023-12-28 11:30)
DX: Z09 Encounter for follow-up examination after completed treatment for conditions other than malignant neoplasm (principal); K22.2 Esophageal obstruction; K44.9 Diaphragmatic hernia without obstruction or gangrene; K21.9 Gastro-esophageal reflux disease without esophagitis; I12.9 Hypertensive chronic kidney disease with stage 1 through stage 4 chronic kidney disease, or unspecified chronic kidney disease; E11.22 Type 2 diabetes mellitus with diabetic chronic kidney disease; N18.9 Chronic kidney disease, unspecified; Z87.19 Personal history of other diseases of the digestive system; Z86.73 Personal history of transient ischemic attack (TIA), and cerebral infarction without residual deficits; Z79.84 Long term (current) use of oral hypoglycemic drugs; E66.01 Morbid (severe) obesity due to excess calories; Z68.41 Body mass index [BMI] 40.0-44.9, adult
CPT/HCPCS: 43249; 82948; 88305; C1726; J1596; J2003; J2704; J7120

== ENCOUNTER 2024-01-16 12:54 | Outpatient (CLI) | payer BC, SELFPAY ==
--- NOTE | ~2024-01-16 | MM_ITS ---
EXAMINATION: MM screening [facility] BI w clarisse HISTORY: Screening TECHNIQUE: Craniocaudal and mediolateral oblique 3-D tomosynthesis images were obtained and synthetic 2-D images were generated. CAD analysis was submitted and interpreted. COMPARISON: Comparison to multiple prior studies sequentially, with oldest reviewed study dated 02/25. BREAST PARENCHYMAL COMPOSITION: Not dense: There are scattered areas of fibroglandular density. FINDINGS: Focal left breast asymmetry in the upper central breast is unchanged from prior examination s. There is no evidence of suspicious mass, calcification, or architectural distortion to suggest mal ignancy in either breast. There has been no suspicious interval change. IMPRESSION: 1. No mammographic evidence of malignancy. 2. Recommend routine screening mammography in one year. BI-RADS Category 2: Benign finding(s). Reviewed, dictated and finalized at location B.
== END 2024-01-16 12:55 | disposition home or self-care (01) ==
LOC: MICIMG 12:55
PROVIDERS: PCP Internal Medicine; Visit Provider Internal Medicine
DX: Z12.31 Encounter for screening mammogram for malignant neoplasm of breast (principal)
CPT/HCPCS: 77063; 77067

== ENCOUNTER 2024-01-24 12:25 | Outpatient (CLI) | payer BC, SELFPAY ==
--- NOTE | 2024-01-24 12:41 | ECHO_ITS ---
Patient Info Name: Peace Ruiz Age: 63 years : 1960 Gender: Female Ht: 65 in Wt: 260 lbs BSA: 2.39 m2 HR: 75 bpm BP: 134 / 87 mmHg Heart Rhythm: Sinus Rhythm Technical Quality: Good Exam Date: 01/24/2024 1:01 PM Exam Location: Echo Lab Patient Status: Outpatient Admit Date: 01/24/2024 Staff Ordering Physician: Ashanti Flynn NP Curriculum Development Specialist: Shahram Odom RDCS Attending Provider: Ashanti Flynn NP Referring Physician: Rina CRANDALL; Exam Type: CA echo doppler color flow Study Info Indications - murmur Complete two-dimensional, color flow and Doppler transthoracic echocardiogram is performed. Summary 1. Complete two-dimensional, color flow and Doppler transthoracic echocardiogram is performed. 2. Left ventricular chamber dimension is normal. 3. Left ventricular systolic function is normal, estimated at 60-65%. 4. The left ventricular diastolic function is abnormal. 5. E/e' 17 is elevated. 6. Left atrial chamber dimension is mildly enlarged. 7. There is mild mitral valve regurgitation. 8. There is mild tricuspid valve regurgitation. 9. Mild pulmonary hypertension, estimated pulmonary arterial systolic pressure is 43 mmHg. Left Ventricle E/e' 17 is elevated. Left ventricular chamber dimension is normal. Left ventricular systolic function is normal, estimated at 60-65%. The left ventricular diastolic function is abnormal. Right Ventricle Right ventricular systolic function is normal and with normal TAPSE 3.4 cm. Right ventricular chamber dimension is normal. Left Atria Left atrial chamber dimension is mildly enlarged. Right Atria Right atrial chamber dimension is normal. Aortic Valve The aortic valve is trileaflet. There is no aortic valve stenosis. There is no aortic valve regurgitation. Pulmonic Valve There is no pulmonic regurgitation. Mitral Valve There is no mitral valve stenosis. There is mild mitral valve regurgitation. Tricuspid Valve There is mild tricuspid valve regurgitation. Mild pulmonary hypertension, estimated pulmonary arterial systolic pressure is 43 mmHg. Pericardium/Pleural There is no pericardial effusion. Inferior Vena Cava Normal inferior vena cava with >50% collapse upon inspiration consistent with normal right atrial pressure, 5 mmHg. Aorta The aortic root size at the sinus of Valsalva is normal. Left Ventricular Outflow Tract Name Value Normal LVOT 2D LVOT Diameter 1.9 cm LVOT Doppler LVOT Peak Gradient 14 mmHg LVOT Mean Gradient 7 mmHg LVOT VTI 39 cm LVOT VTI/AV VTI Ratio 0.7 LVOT Stroke Volume 106 ml LVOT CO 7.7 l/min LVOT CI 3.2 l/min/m2 Mitral Valve Name Value Normal MV Doppler MV Decel [place] 597 cm/s2 MV PHT 67 ms MV Area (PHT) 3.3 cm2 4.0-5.0 MV Regurgitation Doppler MR Peak Gradient 54 mmHg MV Diastolic Function MV E Peak Velocity 138 cm/s MV A Peak Velocity 113 cm/s MV E/A 1.2 MV Decel Time 232 ms MV Annular TDI MV E/e' (Septal) 19.4 <=8.0 MV E/e' (Lateral) 15.7 <=8.0 MV E/e' (Average) 17.6 Tricuspid Valve Name Value Normal TV Regurgitation Doppler TR Peak Velocity 307 cm/s TR Peak Gradient 38 mmHg Estimated PAP/RSVP RA Pressure 5 mmHg <=5 PA Systolic Pressure 43 mmHg <36 RV Systolic Pressure 43 mmHg <36 Aortic Valve Name Value Normal AV Doppler AV Peak Velocity 244 cm/s AV Peak Gradient 24 mmHg AV Mean Gradient 15 mmHg AV VTI 58 cm AV Area (Cont Eq VTI) 1.8 cm2 >=3.0 AV Area (Cont Eq Terence) 2.1 cm2 AV Regurgitation 2D LVOT Area 2.7 cm2 Ventricles Name Value Normal LV Dimensions 2D/MM IVS Diastolic Thickness (2D) 1.2 cm 0.6-1.0 LVID Diastole (2D) 4.4 cm 3.8-5.2 LVIW Diastolic Thickness (2D) 1.2 cm 0.6-0.9 LVID Systole (2D) 2.9 cm 2.2-3.5 LVOT Diameter 1.9 cm LV Mass (2D Cubed) 188.92 g 67.00-162.00 LV Mass Index (2D Cubed) 79 g/m2 43-95 Relative Wall Thickness (2D) 0.55 LV Fractional Shortening/Ejection Fraction 2D/MM LV Fractional Shortening (2D) 35 % 27-45 LV EF (2D Teicholz) 65 % 54-74 LV Diastolic Volume (4C MOD) 149 ml LV EF (4C MOD) 71 % LV Diastolic Volume (2C MOD) 139 ml LV EF (2C MOD) 48 % LV Diastolic Volume (BP MOD) 147 ml 46-106 LV Diastolic Volume Index (BP MOD) 62 ml/m2 29-61 LV Systolic Volume (BP MOD) 60 ml 14-42 LV Systolic Volume Index (BP MOD) 25 ml/m2 8-24 LV EF (BP MOD) 59 % 54-74 LV Diastolic Length (4C) 9.4 cm LV Systolic Length (4C) 6.5 cm LV Stroke Volume (4C MOD) 106 ml Atria Name Value Normal LA Dimensions LA Volume (4C A-L) 51 ml LA Volume (BP A-L) 50 ml RA Dimensions RA Area (4C) 13.1 cm2 <=18.0 Report Signatures
== END 2024-01-24 12:26 | disposition home or self-care (01) ==
LOC: ANHCARD 12:28
PROVIDERS: PCP Internal Medicine; Visit Provider Nurse Practitioner
DX: R01.1 Cardiac murmur, unspecified (principal); I08.1 Rheumatic disorders of both mitral and tricuspid valves; I27.20 Pulmonary hypertension, unspecified
CPT/HCPCS: 93306

== ENCOUNTER 2024-01-29 14:33 | Outpatient (CLI) | payer BC, SELFPAY ==
--- NOTE | ~2024-01-29 | US_ITS ---
RIGHT LOWER EXTREMITY VENOUS ULTRASOUND Ordering provider: Ashanti Flynn NP History: . M79.918 - Pain in unspecified thigh . Comparison: None. FINDINGS: --COMMON FEMORAL: Patent and free of thrombus. Normal compressibility, phasic flow and augmentation. --PROXIMAL SUPERFICIAL FEMORAL: Patent and free of thrombus. Normal compressibility, phasic flow and augmentation. --DISTAL SUPERFICIAL FEMORAL: Patent and free of thrombus. Normal compressibility, phasic flow and au gmentation. --POPLITEAL: Patent and free of thrombus. Normal compressibility, phasic flow and augmentation. --POSTERIOR TIBIAL: Patent and free of thrombus. Normal compressibility, phasic flow and augmentation . Varicose veins are seen in the medial aspect of the thyroid. IMPRESSION: Negative right lower extremity venous US. No deep vein thrombosis. Reviewed, dictated and finalized at location A. C DIRECTOR
== END 2024-01-29 14:34 | disposition home or self-care (01) ==
PROVIDERS: PCP Internal Medicine; Visit Provider Nurse Practitioner
DX: I82.491 Acute embolism and thrombosis of other specified deep vein of right lower extremity (principal); M79.89 Other specified soft tissue disorders
CPT/HCPCS: 93971